=== PATIENT | male | born 1950 | race Caucasian/White ===

== ENCOUNTER 2020-01-22 06:49 | Day surgery (SDC) | payer MEDICARE, OTHER ==
[~2020-01-22] VITALS: Ht 188 cm; Wt 92.1 kg
--- NOTE | ~2020-01-22 | OP ---
PATIENT NAME: RM ELDER MEDICAL RECORD: [id number] :54 LOCATION:D.OPS ADMISSION DATE: SURGEON: SHAW COY MD DATE OF OPERATION: 01/22/2020 PREOPERATIVE DIAGNOSES: 1. Right inguinal hernia. 2. Coronary artery disease. 3. Hypertension. 4. Hypercholesterolemia. 5. Tobacco dependence syndrome. POSTOPERATIVE DIAGNOSES: 1. Right inguinal hernia. 2. Coronary artery disease. 3. Hypertension. 4. Hypercholesterolemia. 5. Tobacco dependence syndrome. PROCEDURE: Right inguinal hernia repair with medium PHS mesh. SURGEON: Shaw Coy MD REPORT OF PROCEDURE: The patient's abdomen was prepped and draped in sterile fashion. An oblique incision was made in the right inguinal region. Electrocautery was used to dissect through the subcutaneous tissues to the external oblique fascia. This fascia was opened up to the external ring using electrocautery. The spermatic cord was elevated and a Maria D was placed around it. The ilioinguinal nerve was bifurcated and these 2 branches were high ligated. The patient had a large direct hernia defect which was fat containing. This was freed up from the spermatic cord. We then opened up this defect and removed the hernia sac and opened up the preperitoneal space of Retzius. With this open, we were able to insert the medium PHS mesh and this was sutured down on all sides with interrupted 0 Vicryls times 6. The mesh appeared to rest in good position with no tension. We irrigated out the wound with normal saline. The external oblique fascia was closed with running 2-0 Vicryl, Alea's was closed with interrupted 3-0 Vicryl and the skin was closed with running subcutaneous 5-0 Monocryl. We infused 10 mL of 0.25% Marcaine with epinephrine into the surrounding tissues and the wound was dressed appropriately. COMPLICATIONS: None. CONDITION: Stable. ANESTHESIA: General endotracheal and local. BLOOD LOSS: Minimal. TRANSINT:[id number] Voice Confirmation ID: [id number] DOCUMENT ID: [id number] OPERATIVE REPORT [id number] RM ELDER SHAW COY MD CC: NOEMI LANDRY MD [id number] DICTATION DATE: 01/22/20 1116 ADMITTING INTERVIEWER: 01/22/20 2223 [facility] 01/22/20 [facility] [address] [place] [address]
[~2020-01-22 06:49] MED LIST: ALTACE10 MG PO; COREG12.5 MG PO; CRESTOR40 MG PO; GLYCOPYRROLATE1 MG PO; PAROXETINE HCL10 MG PO
[2020-01-22 07:16] LABS: HEMATOCRIT 35.7 % (42.0-54.0); HEMOGLOBIN 11.7 g/dL (13.5-17.5); MCH 29.4 pg (26.0-34.0); MCHC 32.8 g/dL (31.0-37.0); MCV 89.7 fL (80.0-100.0); MEAN PLATELET VOLUME 9.3 fL (7.4-10.4); RBC 3.98 10x6/uL (4.20-6.10); WBC 5.2 10x3/uL (4.8-10.8)
[2020-01-22 08:08] VITALS: BP 183/87; Ht 188 cm; Wt 92.1 kg
[2020-01-22] MEDS ORDERED: HYDROCODON-ACE1 EA10 PO (11:17)
--- NOTE | 2020-01-22 14:49 | NUR ---
1410 PT REPORTS PAIN DOWN TO 3/10. VOIDED IN URINAL 200CC OF CLER YELLOW URINE. IV D'C'D WITH CANNULA INTACT, PRESSURE HELD AND DRESSING APPLIED. DISCHARGE INSTRUCTIONS GIVEN TO PT AND . BOTH VERBALIZED AN UNDERSTANDING.
== END 2020-01-22 14:25 | disposition home or self-care (01) ==
LOC: D.OPS 06:49 → D.PAN 08:45 → D.OPS 09:30 → D.PAN 09:35 → D.OPS 14:25
PROVIDERS: Anesthesiology; ATTEND Surgery
DX: K40.90 Unilateral inguinal hernia, without obstruction or gangrene, not specified as recurrent (principal); I25.10 Atherosclerotic heart disease of native coronary artery without angina pectoris; I10 Essential (primary) hypertension; E78.00 Pure hypercholesterolemia, unspecified; F17.200 Nicotine dependence, unspecified, uncomplicated; E78.2 Mixed hyperlipidemia